=== PATIENT | male | born 1945 | race Caucasian/White ===

== ENCOUNTER 2017-04-11 19:25 | Emergency (ER) | payer MEDICAID, MEDICARE, OTHER ==
[2017-04-11] MEDS ORDERED: HYDROmorphone 1 MG/ML Syringe ONE (20:02)
[2017-04-11] MEDS ORDERED: Ondansetron 4 MG/2 ML SDV ONE (20:02)
[2017-04-11] MEDS ORDERED: HYDROmorphone 1 MG/ML Syringe IVPUSH ONE ×2 (20:13→20:33)
[2017-04-11] MEDS ORDERED: Ondansetron 4 MG/2 ML SDV IVPUSH ONE (20:13)
[2017-04-11] MEDS: Sodium Chloride 0.9% 5 ML Syringe FLUSH PRN ×2 (20:16→20:51)
--- NOTE | 2017-04-11 20:20 | EDM.PDOC ---
ED HPI GENERAL MEDICAL PROBLEM - General Chief Complaint: Back Pain or Injury Stated Complaint: FALL INJURED BACK Time Seen by Provider: 04/11/17 20:13 Source of Information: Reports: Patient History Limitations: Reports: No Limitations - History of Present Illness INITIAL COMMENTS - FREE TEXT/NARRATIVE: PT STATES JUST FRIT COATER A HEAVY METAL PRESS SLID OFF BENCH AND HIT HIM IN RIGHT ARM AND HIP AREA. NOW HAS LOW BACK PAIN. DENIES ABD PAIN, [employer] HERN[employer]NDEZ, LOC, N/V , DIZZINESS, OR TESTICULAR PAIN. Onset: Today Onset Date: 04/11/17 Duration: Hour(s): Location: Reports: Back, Pelvis, Upper Extremity, Right Quality: Reports: Ache Severity: Moderate Improves with: Reports: Rest Worsens with: Reports: Movement Context: Reports: Trauma Associated Symptoms: Reports: No Other Symptoms - Related Data Allergies Allergy/AdvReac Type Severity Reaction Status Date / Time lidocaine Allergy Spasms Verified 04/11/17 19:36 Home Meds: Home Meds Atenolol 50 mg PO BID 11/17/13 [History] Clopidogrel [Plavix] 75 mg PO DAILY 11/17/13 [History] Cyclobenzaprine [Flexeril] 10 mg PO BID PRN 11/17/13 [History] LORazepam [Ativan] 0.5 mg PO BEDTIME PRN 11/17/13 [History] Lisinopril [Prinivil] 10 mg PO DAILY 11/17/13 [History] Pantoprazole Sodium [Protonix] 20 mg PO DAILY 11/17/13 [History] Sertraline [Zoloft] 100 mg PO DAILY 11/17/13 [History] Sodium Bicarbonate 650 mg PO TID 11/17/13 [History] Terazosin [Hytrin] 5 mg PO BEDTIME 11/17/13 [History] Ketorolac [Toradol] 10 mg PO Q6H PRN #10 tab 11/18/13 [Rx] Social & Family History - Tobacco Use Years of Tobacco use: 2 Used Tobacco, but Quit: Yes Month Tobacco Last Used: Unknown Second Hand Smoke Exposure: No - Alcohol Use Days Per Week of Alcohol Use: 0 - Recreational Drug Use Recreational Drug Use: No ED ROS GENERAL - Review of Systems Review Of Systems: ROS reveals no pertinent complaints other than HPI. Constitutional: Reports: No Symptoms HEENT: Reports: No Symptoms Respiratory: Reports: No Symptoms Cardiovascular: Reports: No Symptoms Endocrine: Reports: No Symptoms GI/Abdominal: Reports: No Symptoms : Reports: No Symptoms Musculoskeletal: Reports: Back Pain (LUMBAR AND RIGHT PELVIS) Skin: Reports: Wound (RUE ABRASIONS TO FOREARM) Neurological: Reports: No Symptoms Psychiatric: Reports: No Symptoms Hematologic/Lymphatic: Reports: No Symptoms Immunologic: Reports: No Symptoms ED EXAM,LOWER BACK PAIN/INJURY - Physical Exam Exam: See Below Exam Limited By: No Limitations General Appearance: Alert, WD/WN, No Apparent Distress Eye Exam: Bilateral Eye: Normal Inspection Nose: Normal Inspection, No Blood Throat/Mouth: Normal Inspection, Normal Oropharynx, No Airway Compromise Head: Atraumatic, Normocephalic Neck: Normal Inspection, Supple, Non-Tender, Full Range of Motion Respiratory/Chest: No Respiratory Distress, Lungs Clear Cardiovascular: Regular Rate, Rhythm, No Murmur GI/Abdominal: Normal Bowel Sounds, Soft, Non-Tender, No Distention Back Exam: Paraspinal Tenderness, Other (RIGHT PELVIS TENDERNESS WITHOUT ECCHYMOSIS/ERYTHEMA/EDEMA) Extremities: Arm Pain (RIGHT FOREARM ABRASIONS WITHOUT EDEMA, ROM DEFICIT OR DEFORMITY NOTED) Neurological: Alert, Normal Mood/Affect, CN II-XII Intact Psychiatric: Normal Affect, Normal Mood Skin Exam: Warm, Dry, Normal Color, No Rash Course - Vital Signs Last Recorded V/S: Last Vital Signs Temp 96.5 F 04/11/17 19:36 Pulse 71 04/11/17 19:36 Resp 20 04/11/17 19:36 BP 132/66 04/11/17 19:36 Pulse Ox 97 04/11/17 19:36 - Orders/Labs/Meds Orders: Active Orders 24 hr Category Date Time Status Lumbar Spine 2 or 3V [CR] Stat Exams 04/11/17 19:45 Ordered Pelvis 1V or 2V [CR] Stat Exams 04/11/17 19:46 Ordered HYDROmorphone [Dilaudid] Med 04/11/17 20:13 Once 0.5 mg IVPUSH ONETIME ONE Ondansetron [Zofran] Med 04/11/17 20:13 Once 4 mg IVPUSH ONETIME ONE Sodium Chloride 0.9% [Syrex Flush] Med 04/11/17 19:43 Active 5 ml FLUSH Q8HR PRN Saline Lock Insert [OM.PC] Routine Oth 04/11/17 19:43 Ordered Medication Orders Hydromorphone HCl (Dilaudid) 0.5 mg IVPUSH ONETIME ONE Stop: 04/11/17 20:14 Ondansetron HCl (Zofran) 4 mg IVPUSH ONETIME ONE Stop: 04/11/17 20:14 Sodium Chloride (Syrex Flush) 5 ml FLUSH Q8HR PRN PRN Reason: Keep Vein Open Meds: Medications Generic Name Dose Route Start Last Admin Trade Name Freq PRN Reason Stop Dose Admin Hydromorphone HCl 0.5 mg 04/11/17 20:13 Dilaudid IVPUSH 04/11/17 20:14 ONETIME ONE Ondansetron HCl 4 mg 04/11/17 20:13 Zofran IVPUSH 04/11/17 20:14 ONETIME ONE Sodium Chloride 5 ml 04/11/17 19:43 Syrex Flush FLUSH Q8HR PRN Keep Vein Open Discontinued Medications Generic Name Dose Route Start Last Admin Trade Name Freq PRN Reason Stop Dose Admin Hydromorphone HCl Confirm 04/11/17 20:02 Dilaudid Administered 04/11/17 20:03 Dose 1 mg .ROUTE .STK-MED ONE Ondansetron HCl Confirm 04/11/17 20:02 Zofran Administered 04/11/17 20:03 Dose 4 mg .ROUTE .STK-MED ONE - Radiology Interpretation Free Text/Narrative:: lumbar and pelvis xrays show no acute process - Re-Assessments/Exams Free Text/Narrative Re-Assessment/Exam: 04/11/17 21:26 PT AFEBRILE, NONTOXIC APPEARING, VSS, AT BEDSIDE. DECLINED PAIN MEDS TO GO HOME. WILL F/U AT CLINIC ON THURSDAY Departure - Departure Time of Disposition: 21:27 Disposition: Home, Self-Care 01 Condition: Good Clinical Impression: Back pain due to injury Abrasion forearm Qualifiers: Encounter type: initial encounter Laterality: right Qualified Code(s): S50.811A - Abrasion of right forearm, initial encounter - Discharge Information Instructions: Back Pain, Adult, [id number], Abrasion, [id number], Contusion Additional Instructions: FOLLOW UP AT [facility] ON THURSDAY. RETURN TO ER SOONER IF SYMPTOMS CONTINUE - My Orders Last 24 Hours: My Active Orders 04/11/17 19:43 Sodium Chloride 0.9% [Syrex Flush] 5 ml FLUSH Q8HR PRN Saline Lock Insert [OM.PC] Routine 04/11/17 19:45 Lumbar Spine 2 or 3V [CR] Stat 04/11/17 19:46 Pelvis 1V or 2V [CR] Stat 04/11/17 20:13 HYDROmorphone [Dilaudid] 0.5 mg IVPUSH ONETIME ONE Ondansetron [Zofran] 4 mg IVPUSH ONETIME ONE - Assessment/Plan Last 24 Hours: My Active Orders 04/11/17 19:43 Sodium Chloride 0.9% [Syrex Flush] 5 ml FLUSH Q8HR PRN Saline Lock Insert [OM.PC] Routine 04/11/17 19:45 Lumbar Spine 2 or 3V [CR] Stat 04/11/17 19:46 Pelvis 1V or 2V [CR] Stat 04/11/17 20:13 HYDROmorphone [Dilaudid] 0.5 mg IVPUSH ONETIME ONE Ondansetron [Zofran] 4 mg IVPUSH ONETIME ONE Assessment:: BACK PAIN / RUE CONTUSION Plan: F/U WITH PCP
[2017-04-11 20:49] VITALS: BP 126/57
[2017-04-11] MEDS ORDERED: Bacitracin/Neomycin/Polymyxin B Oint 0.9 GM U/D Packet ONE (21:20)
== END 2017-04-11 21:50 | disposition home or self-care (01) ==
LOC: KA.ED 19:25
DX: S39.92XA Unspecified injury of lower back, initial encounter (principal); S50.811A Abrasion of right forearm, initial encounter; Z87.891 Personal history of nicotine dependence; Z79.02 Long term (current) use of antithrombotics/antiplatelets; Z79.899 Other long term (current) drug therapy; Z88.6 Allergy status to analgesic agent; W18.09XA Striking against other object with subsequent fall, initial encounter
CPT/HCPCS: 72100; 72170; 96374; 96375; 96376; 99283; J1170; J2405